=== PATIENT | female | born 1995 | race African-American/Black ===

== ENCOUNTER 2021-10-29 19:46 | Emergency (ER) | payer OTHER ==
[~2021-10-29] VITALS: Ht 151.1 cm; Wt 61.9 kg
[2021-10-29 20:25] LABS: PLATELET COUNT 231 K/uL (152-353)
[2021-10-29 20:40] LABS: POTASSIUM 3.3 mmol/L (3.6-5.2)
[2021-10-29 20:46] LABS: PARTIAL THROMBOPLASTIN TIME 21.8 SECONDS (24.5-33.6)
[2021-10-29 21:30] VITALS: BP 120/88; TEMP 98.3
== END 2021-10-29 21:30 | disposition home or self-care (01) ==
LOC: ED 19:46
PROVIDERS: Hospitalist
DX: O23.31 Infections of other parts of urinary tract in pregnancy, first trimester (principal); N39.0 Urinary tract infection, site not specified; O20.0 Threatened abortion; Z3A.01 Less than 8 weeks gestation of pregnancy
CPT/HCPCS: 36415; 80053; 80307; 80320; 81000; 81025; 84702; 85027; 85610; 85730; 87077; 87086; 87088; 87186; 96360; 96365; 96375; 99284; J0696; J2405